=== PATIENT | male | born 1995 | race American Indian/Alaskan Native ===

== ENCOUNTER 2019-01-09 12:19 | Emergency (ER) | payer SELFPAY ==
[2019-01-09 12:43] VITALS: BP 138/94
--- NOTE | 2019-01-09 12:54 | Emergency Department Report ---
Chief Complaint: Urogenital-Male Stated Complaint: YELLOW DISCHARGE FROM PENIS Time Seen by Provider: 01/09/19 12:45 - HPI History of Present Illness: 23 y o male presents with penile yellow d/c x 2-3 weeks, denies dysuria,scrotum pain,swelling and pelvic pain, fever, abd pain or any other sx - ROS Review of Systems: as noted in HPI - Exam Vital Signs: Vital Signs 01/09/19 12:42 Temperature 98 F Pulse Rate 79 Respiratory 18 Rate Blood Pressure 138/94 [Right] O2 Sat by Pulse 96 Oximetry Physical Exam: Gen: AAO x 3 ABD: obese, soft, Non tender to palpation MSE screening note: Focused history and physical exam performed. Due to findings the following was ordered: ED Medical Decision Making - Medical Decision Making 23 y o male presents for STD screening Discussed iwth pt this is a NME and can be seen at [facility] flyer given to pt as well as instruction to get tested Stable, VS, in no acute distress will go to [facility] upon d/c ED Disposition for MSE Clinical Impression: Screening for STD (sexually transmitted disease) Disposition: DC-01 TO HOME OR SELFCARE Is pt being admited?: No Does the pt Need Aspirin: No Condition: Stable Instructions: Sexually Transmitted Diseases (ED) Referrals: [facility] [Outside] - 3-5 Days Forms: Work/School Release Form(ED) Time of Disposition: 12:50
== END 2019-01-09 13:02 | disposition home or self-care (01) ==
LOC: ED 12:19
DX: A64 Unspecified sexually transmitted disease (principal)
CPT/HCPCS: 99282